=== PATIENT | female | born 1965 | race Two or more races ===

== ENCOUNTER 2019-02-12 12:00 | Inpatient (IN) | payer OTHER ==
[~2019-02-12] VITALS: Ht 165.1 cm; Wt 78.0 kg
--- NOTE | 2019-02-12 12:04 | NUR ---
BIBRA FOR SUDDEN ONSET DIZZINESS, NAUSEA BILAT HAND NUMBNESSX 15 MINS WHILE WORKING. 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 TO ER BED 10, HOOKED TO MONITOR, CHNAGED TO GOWN, PROVIDED W WARM BLANKET, AWAITING MD BURGESS.
--- NOTE | 2019-02-12 12:29 | NUR ---
ACTIVATED CODE STROKE, CALLED TELE STROKE HOTLINE
[2019-02-12] MEDS ORDERED: IV NS 0.9% 1,000 ML BAG IV ONE ×2 (12:30)
[2019-02-12 12:32] LABS: BASOPHILS % (AUTO) 0.7 % (0.0-2.0); EOSINOPHILS % (AUTO) 1.2 % (0.0-6.0); HEMATOCRIT 42 % (33-45); HEMOGLOBIN 14.2 g/dL (11.5-14.8); LYMPHOCYTES # (AUTO) 2.5 /CMM (0.8-4.8); LYMPHOCYTES % (AUTO) 53.8 % (20.0-44.0); MEAN CORPUSCULAR HGB CONC 34 g/dl (31.0-36.0); MEAN CORPUSCULAR VOLUME 93 fL (82-100); MONOCYTES # (AUTO) 0.4 /CMM (0.1-1.30); NEUTROPHILS # (AUTO) 1.6 /CMM (1.8-8.9); NEUTROPHILS % (AUTO) 35.3 % (43.0-81.0); PLATELET COUNT (AUTO) 228 /CMM (150-450); RED BLOOD CELL COUNT(AUTO) 4.55 MIL/uL (4.0-5.2); WHITE BLOOD COUNT (AUTO) 4.6 K/uL (4.3-11.0)
[2019-02-12 12:40] LABS: CALCIUM, SERUM 9.1 mg/dL (8.5-10.1); CARBON DIOXIDE 27 mmol/L (21-32); CHLORIDE 102 mmol/L (98-107); CREATININE 0.8 mg/dL (0.6-1.3); GLUCOSE 167 mg/dL (74-106); SODIUM SERUM 139 mmol/L (136-145); UREA NITROGEN, BLOOD 18 mg/dL (7-18)
[2019-02-12 12:51] LABS: ALANINE AMINOTRANSFERASE 106 U/L (12-78); ALBUMIN 4.2 g/dL (3.4-5.0); ALKALINE PHOSPHATASE 126 U/L (46-116); ASPARTATE AMINOTRANSFERASE 50 U/L (15-37); BILIRUBIN,DIRECT 0.1 mg/dL (0.0-0.2); BILIRUBIN,TOTAL 0.5 mg/dL (0.2-1.0); TOTAL PROTEIN, SERUM 8.2 g/dL (6.4-8.2)
[2019-02-12] MEDS ORDERED: IOHEXOL-350 100 ML VIAL IV ONE (12:57)
--- NOTE | 2019-02-12 12:58 | NUR ---
GAVE MOVE SHEET TO ADMITTING
--- NOTE | 2019-02-12 12:58 | NUR ---
CALLED NURSING SUP REQUESTED TELE BED
[2019-02-12 13:13] LABS: CHOLESTEROL 220 mg/dL (<200); HDL CHOLESTEROL 73 mg/dL (40-60); LDL 134 mg/dL (0-99); TRIGLYCERIDES 59 mg/dL (30-150)
[2019-02-12] MEDS ORDERED: ONDANSETRON HCL/PF - ER 4 MG/2 ML VIAL IV ONE (13:30)
[2019-02-12] MEDS ORDERED: MECLIZINE HCL 12.5 MG TABLET PO ONE (13:30)
--- NOTE | 2019-02-12 13:32 | NUR ---
NADIR BREWSTER FOR IPA
--- NOTE | 2019-02-12 13:39 | NUR ---
SPOKE TO NADIR BREWSTER, GAVE VERBAL AUTH FOR ADMISSION
[2019-02-12] MEDS ORDERED: 5-HY100C PO (13:55)
[2019-02-12] MEDS ORDERED: CYAN500T4 PO (13:55)
[2019-02-12] MEDS ORDERED: ONDANSETRON HCL/PF 4 MG/2 ML VIAL ONE (14:07)
[2019-02-12] MEDS ORDERED: MECLIZINE HCL 12.5 MG TABLET ONE (14:07)
--- NOTE | 2019-02-12 14:19 | NUR ---
REPORT GIVEN TO SIDNEY BARNES OF TELE UNIT
[2019-02-12] MEDS ORDERED: ASPIRIN 81 MG TAB.CHEW ONE (14:41)
[2019-02-12] MEDS: ASPIRIN 81 MG TAB.CHEW PO SCH (14:43)
--- NOTE | 2019-02-12 15:00 | NUR ---
REPORT RECEIVED FROM ERICA PT IS STILL NOT ON UNIT
--- NOTE | 2019-02-12 16:45 | NUR ---
PT BROUGHT ONTO UNIT BY YOVANY. PT GOT OFF YOVANY AND WALKED TO BED. PT STATED THE DIZZINESS AND NAUSEA HAS CEASED.PT DENIES ANY SOB OR PAIN AT THIS PRESENT MOMENT ON MONITOR PT IS SR IN HR 76.
[2019-02-12 17:41] VITALS: BP 123/68
[2019-02-12] MEDS ORDERED: MAG HYDROX/AL HYDROX/SIMETH 30 ML UDC PO PRN (18:00)
[2019-02-12] MEDS ORDERED: ACETAMINOPHEN 325 MG TABLET PO PRN (18:00)
[2019-02-12] MEDS ORDERED: ONDANSETRON HCL/PF 4 MG/2 ML VIAL IVP PRN (18:00)
[2019-02-12] MEDS ORDERED: HYDROCODONE/APAP 5/325MG 1 EACH TABLET PO PRN (18:00)
[2019-02-12] MEDS ORDERED: MAGNESIUM HYDROXIDE 30 ML UDC PO PRN (18:00)
[2019-02-12] MEDS ORDERED: Z GUARD REMEDY 2 OZ OINT TP PRN (18:00)
--- NOTE | 2019-02-12 19:25 | NUR ---
MOLLY TERAN NOTES BEDSIDE REPORT RECIEVED FROM JOSE BARNES. PT IS A&OX4, PRIMARILY BENGALI SPEAKING. PT DENIES PAIN OR SOB AND RESTING IN BED. SON IS AT THE BEDSIDE. POC REVIEWED QUESTIONS CONCERNS ADDRESSED. PATIENT DENIES ANY NUMBNESS TO HANDS, REPORTS SHE HAS GOOD SENSATION THROUGHOUT BODY. NO DEFICIT IN MOVEMENT SEEN. FACE IS SYMMETRICAL. PATIENT HAS SR ON TELE IN THE 60'S. SAFETY PRECAUTIONS IN PLACE. VERBALIZED UNDERSTANDING TO CALL FOR ASSISTANCE NEEDED.
--- NOTE | 2019-02-12 19:28 | NUR ---
RN CLOSING NOTES PT IS A&OX4. PT DENIES ANY PAIN OR SOB AND IS RESTING IN BED. SON IS AT PT'S BEDSIDE. PT IS ABLE TO AMBULATE TO THE RESTROOM. PT HR WAS SB WHILE PT WAS SLEEPING WHEN PT WAS WOKEN UP PT HR WENT UP TO 65. REPORT GIVEN TO CLINICAL ADMINISTRATIVE COORDINATOR RN FOR CONTINUITY OF CARE. ALL NEEDS AND SAFETY PRECAUTIONS IN PLACE WILL ENDORSE CONTINUITY OF CARE TO CLINICAL ADMINISTRATIVE COORDINATOR RN
[2019-02-12 20:00] VITALS: BP 123/73
--- NOTE | 2019-02-12 21:03 | NUR ---
MAALOX PRN PATIENT REPORTING SHE HAS UPSET STOMACH. REQUESTING MAALOX. MAALOX ADMINISTERED ORDERED.
--- NOTE | 2019-02-12 21:35 | NUR ---
TYELENOL PRN PATIENT REPORT CUELLO OF 10/06. PATIENT REQUESTING TYELENOL. TYELENOL ADMINISTERED ORDERED.
[2019-02-13 00:28] VITALS: BP 98/61
[2019-02-13 04:27] VITALS: BP 102/63
[2019-02-13 06:26] LABS: BASOPHILS % (AUTO) 0.9 % (0.0-2.0); EOSINOPHILS % (AUTO) 1.6 % (0.0-6.0); HEMATOCRIT 41 % (33-45); HEMOGLOBIN 13.6 g/dL (11.5-14.8); LYMPHOCYTES # (AUTO) 1.9 /CMM (0.8-4.8); LYMPHOCYTES % (AUTO) 45.9 % (20.0-44.0); MEAN CORPUSCULAR HGB CONC 33 g/dl (31.0-36.0); MEAN CORPUSCULAR VOLUME 92 fL (82-100); MONOCYTES # (AUTO) 0.4 /CMM (0.1-1.30); MONOCYTES % (AUTO) 9.8 % (2.0-12.0); NEUTROPHILS # (AUTO) 1.7 /CMM (1.8-8.9); NEUTROPHILS % (AUTO) 41.8 % (43.0-81.0); PLATELET COUNT (AUTO) 210 /CMM (150-450); RED BLOOD CELL COUNT(AUTO) 4.41 MIL/uL (4.0-5.2); WHITE BLOOD COUNT (AUTO) 4.1 K/uL (4.3-11.0)
[2019-02-13 06:44] LABS: THYROID STIMULATING HORMONE 1.654 uIU/mL (0.358-3.74)
[2019-02-13 06:51] LABS: ALBUMIN 3.5 g/dL (3.4-5.0); BILIRUBIN,TOTAL 0.6 mg/dL (0.2-1.0); CALCIUM, SERUM 8.8 mg/dL (8.5-10.1); CREATININE 0.9 mg/dL (0.6-1.3); MAGNESIUM 2.1 mg/dL (1.8-2.4); PHOSPHORUS 3.9 mg/dL (2.5-4.9); TOTAL PROTEIN, SERUM 6.7 g/dL (6.4-8.2)
--- NOTE | 2019-02-13 07:34 | NUR ---
RN CLOSING NOTES PT DENIES ANY PAIN OR SOB AND IS RESTING IN BED. PT IS ABLE TO AMBULATE TO THE RESTROOM. TELEMETRY REPORTING HR IN THE 60'S TO HIGH 50'S.SAFETY PRECAUTIONS IN PLACE WILL ENDORSE CONTINUITY OF CARE TO DAY SHIFT RN
--- NOTE | 2019-02-13 07:50 | NUR ---
ms rn received on bed, awake,alert,oriented x4,not in any form of distress, respirations even and unlabored,no sob noted, lungs are clear,abdomen soft,positive bowel sounds,denies pain at this time, will monitor patient's condition.
[2019-02-13 08:00] VITALS: BP_SYST 102; BP_SYST 115; BP_DIAS 63; BP_DIAS 67
--- NOTE | 2019-02-13 09:00 | NUR ---
ms montoya breakfast served,due meds given,tolerated well.
[2019-02-13] MEDS: ASPIRIN 81 MG TAB.CHEW PO SCH (09:08)
--- NOTE | 2019-02-13 15:00 | NUR ---
ms rn was seen by neurologist, ok to go home.
[2019-02-13 15:30] VITALS: BP 127/73
--- NOTE | 2019-02-13 16:18 | NUR ---
Met with patient, she is alert and pleasant.She lives locallly with her spouse and children. She is ambulatory and independent with adl's. Denies having DME or homehealth. No dc planning needs identified. She was advised to f/u with pcp Dr. Mike Che in [place]. Addendum: 02/13/19 at 2027 by EDISON BONDS RN Amended: Links added.
[2019-02-13] MEDS ORDERED: METFORMIN 500 MG TABLET PO SCH (17:00)
--- NOTE | 2019-02-13 18:20 | NUR ---
ms oncology rn instructions given and understood, went home accompanied by son w/ prescription of metformin.
[2019-02-13] MEDS ORDERED: METF-440 PO (18:41)
[2019-02-13] MEDS ORDERED: ATORVASTATIN 40 MG TABLET PO SCH (22:00)
== END 2019-02-13 18:20 | disposition home or self-care (01) | DRG 812 ==
LOC: ER 12:00 → TELE 13:48 → MED 02-13 09:57
PROVIDERS: ADMIT Hospitalist; ATTEND Hospitalist
DX: T40.7X1A Poisoning by cannabis (derivatives), accidental (unintentional), initial encounter (principal); I67.1 Cerebral aneurysm, nonruptured; R42 Dizziness and giddiness; E11.65 Type 2 diabetes mellitus with hyperglycemia; E78.5 Hyperlipidemia, unspecified; R53.1 Weakness; Y92.009 Unspecified place in unspecified non-institutional (private) residence as the place of occurrence of the external cause; F41.9 Anxiety disorder, unspecified; I10 Essential (primary) hypertension; Z90.5 Acquired absence of kidney; R74.0 Nonspecific elevation of levels of transaminase and lactic acid dehydrogenase [LDH]
CPT/HCPCS: 36415; 70450-TC; 70496-TC; 71045-TC; 80048-TC; 80053-TC; 80061-TC; 80076-TC; 80305; 82140-TC; 83735-TC; 84100-TC; 84443-TC; 84484-TC; 84702-TC; 85025-TC; 85730-TC; 87081-TC; G0378; J2405; J7030; J8597; Q9967